=== PATIENT | female | born 1950 | race Caucasian/White ===

== ENCOUNTER 2023-10-14 07:27 | Day surgery (SDC) | payer MEDICARE ==
[2023-10-14] MEDS: Lactated Ringers 1,000 ML IV SCH (08:30)
[2023-10-14] MEDS ORDERED: Midazolam 1 MG/ML 2 ML SDV ONE (08:37)
[2023-10-14] MEDS ORDERED: Propofol 200 MG/20 ML SDV ONE (08:37)
[2023-10-14] MEDS ORDERED: fentaNYL 50 MCG/ML SDV ONE (08:37)
== END 2023-10-14 10:40 | disposition home or self-care (01) ==
LOC: JP.SDS 07:27
PROVIDERS: ATTEND Family Medicine
DX: Z12.11 Encounter for screening for malignant neoplasm of colon (principal)
CPT/HCPCS: G0121; J2250; J2704; J3010; J7120